=== PATIENT | male | born 1990 | race Caucasian/White ===

== ENCOUNTER → 2016-09-14 14:10 | Emergency (ER) | payer MEDICAID ==
[~2016-09-14 14:10] MED LIST: ABILIFY5 M1 PO; CIPRO500 M2 PO; CYCLOBENZAPRINE10 M1 PO; GRALISE1 EAC1 PO; HYDROXYZINE HCL50 M1 PO; NORCO 5-325 TA1 EACH PO; TRAZODONE HCL100 M1 PO; VYVANSE50 M1 PO
== END | disposition left against medical advice (07) ==
LOC: EDMED 14:10
DX: S00.212A Abrasion of left eyelid and periocular area, initial encounter (principal); Z53.21 Procedure and treatment not carried out due to patient leaving prior to being seen by health care provider; Y04.0XXA Assault by unarmed brawl or fight, initial encounter